=== PATIENT | female | born 1940 | race Caucasian/White ===

== ENCOUNTER → 2019-04-18 14:20 | Outpatient (BNVA) | payer OTHER, SELFPAY | PROVIDERS: Family Provider Internal Medicine; PCP Internal Medicine; Visit Provider Podiatrist Foot & Ankle Surgery | DX: M79.672 Pain in left foot (principal) | CPT/HCPCS: 73630 ==

== ENCOUNTER 2019-05-09 08:01 | Outpatient (CLI) | payer OTHER, SELFPAY ==
--- NOTE | 2019-05-09 08:00 | MR_ITS ---
WS: [id number] MRI LEFT KNEE HISTORY: mechanical symptoms, crush injury. Knee gives out. COMPARISON: MRI 10/15/2013 and prior knee radiograph 11/15/2018. Anterior cruciate ligament: Mild increased signal in the ACL but it is intact. Posterior cruciate ligament: Intact. Medial collateral ligament: Intact. Posterior lateral corner structures: Intact. Medial menisci: Increased signal within the posterior horn does not extend to an articular surface. M ost consistent with moderate intrasubstance degeneration. Anterior horn is negative. Lateral meniscus: Both the anterior and posterior horns are abnormal shape. Diffuse abnormal signal t hroughout the anterior horn consistent with a complex tear. Suspect a radial component of the tear as it extends superior to inferior through the meniscus. There is blunting and fraying of the posterior horn. Extensor mechanism: Distal quadriceps tendon and patellar tendons are intact. Fluid and soft tissue: Small amount of fluid posterior to the medial femoral condyle. Within the flui d is a loose body measuring 10.8 mm. There is a small joint effusion. No [place]'s cyst. There is edema within the infrapatellar fat pad posteriorly towards the joint surface which may be related to impin gement. Osseous and articular structures: Patellofemoral compartment: Severe degenerative changes at the patellofemoral articulation. Significa nt progression of arthritic changes. Complete loss of cartilage with subchondral cystic changes on anai th sides of the joint space, especially laterally. There is very slight lateral subluxation of patell a. Medial compartment: Mild narrowing of the medial compartment with the cartilage relatively well-prese rved. No marrow edema. Lateral compartment: Mild narrowing of the lateral compartment. Thinning and fissuring of the cartila ge. There are focal defects in the cartilage. Defects involve both the femoral condyle and the tibial plateau. Mild progression since the prior study. Large area of subchondral edema and irregularity at the base of the tibial spines. MR/MR knee LT wo con* [id number] IMPRESSION: 1. Severe patellofemoral compartment osteoarthritis with loss of cartilage and osteophytes, greatest involving the lateral joint space. 2. Infrapatellar fat pad edema. Probably due to an impingement syndrome. 3. Abnormal appearance of the anterior and posterior horns of the lateral meni scus. Complex tear and possible radial tear in the anterior horn. Progressed si nce the prior study from 2013. 4. Intrasubstance degeneration posterior horn medial meniscus. 5. Loose body surrounded by a small amount of fluid posterior to the medial fe moral condyle. 6. Mild medial and lateral compartment osteoarthritis, greatest involving the lateral compartment with more cartilage loss then medially.
== END 2019-05-09 08:02 | disposition home or self-care (01) ==
LOC: RADSHAW 08:04
PROVIDERS: Family Provider Internal Medicine; PCP Internal Medicine; Visit Provider Orthopaedic Surgery
DX: M17.0 Bilateral primary osteoarthritis of knee (principal); M24.08 Loose body, other site
CPT/HCPCS: 73721

== ENCOUNTER 2019-06-12 09:21 | Day surgery (SDC) | payer OTHER, SELFPAY ==
[2019-06-11 09:06] VITALS: BMI 20.5
[2019-06-12] VITALS (7 sets, daily range): BP systolic 115–137; BP diastolic 62–73; PULSE 72–89; RESP 16–19; TEMP 36.3–36.7; O2SAT 93–100
--- NOTE | 2019-06-12 09:43 | ECG_ITS ---
Measurements Intervals [place] Rate: 58 P: 82 GA: 182 QRS: 59 QRSD: 84 T: 62 QT: 419 QTc: 414 SINUS BRADYCARDIA Compared to ECG 12/17/2018 06:30:41 Sinus rhythm no longer present Electronically Signed On 06-12-2019 13:07:26 CDT by Estefania Owens M.D. [id number]
[2019-06-12] MEDS: acetaminophen 500 mg Tablet 1000 MG PO (10:20)
[2019-06-12] MEDS: sodium chloride 0.9% 1,000 ML 30 ML IV (10:20)
[2019-06-12] MEDS: gabapentin 300 mg Capsule PO (10:21)
[2019-06-12] MEDS: CELEcoxib 200 mg Capsule 400 MG PO (10:21)
[2019-06-12 10:35] LABS: Basophils # 0.1 10^3/uL (0.0-0.1); Eosinophils # 0.3 10^3/uL (0.0-0.8); Eosinophils % 3.6 %; Hematocrit 38.2 % (37.0-47.0); Hemoglobin 12.8 g/dL (11.5-15.3); Lymphocytes # 2.6 10^3/uL (0.8-4.8); Lymphocytes % 35.8 %; Mean Corpuscular HGB Conc 33.5 g/dL (30.0-36.0); Mean Corpuscular Hemoglobin 32.9 pg (28.0-34.0); Mean Corpuscular Volume 98.2 fL (81-99); Mean Platelet Volume 9.5 fL (7.4-10.4); Monocytes # 0.7 10^3/uL (0.2-0.9); Monocytes % 9.7 %; Neutrophils # 3.6 10^3/uL (1.8-7.7); Neutrophils % 49.6 %; Nucleated Red Blood Cells % 0 %; Platelet Count 338 10^3/cmm (130-400); Red Blood Count 3.89 10^6/uL (4.1-5.3); Red Cell Distribution Width 12.4 % (12.1-15.1); White Blood Count 7.3 10^3/uL (4.0-10.0)
--- NOTE | 2019-06-12 10:37 | ANES.PREANE2 ---
Pre-Anesthetic Assessment Pre-Anesthetic Assessment: Height/Weight: Height 1.57 m Weight 50.802 kg Temp Pulse Resp BP Pulse Ox 98.0 F 72 18 137/73 99 06/12/19 10:05 06/12/19 10:05 06/12/19 10:05 06/12/19 10:05 06/12/19 10:05 Preop Diagnosis: Left knee lateral meniscal tear Proposed Procedure: Operation Date: 06/12/19 11:35 Proposed Procedures p Left knee arthroscopy with lateral meniscectomy 50896/S83.282A(Left) - Jim Braden DO Last intake: Intake Last Liquid Date 06/11/19 Last Liquid Time 18:00 Last Solid Date 06/11/19 Last Solid Time 18:00 Social: Social History: No alcohol and No tobacco Exam: Pre-Anes Outpt Exam: alert, oriented x 3, clear to auscultation bilaterally and regular rate & rhythm Airway: Submandibular: WNL Cervical ROM: WNL MP: 1 Dentition: Other (ok) History/ROS: No significant history except as noted Pulmonary: Pulmonary: None reported CV/HEM: CV/HEM: None reported : : None reported Hepatic: Hepatic: None reported GI: GI: GERD (controlled) Metabolic: Metabolic: None reported Musc/skel: Musc/skel: Fibromyalgia and OA/DJD Neuropsych: Neuropsych: WALTON (occ migranes ) and None reported Anesthetic Plan: ASA status: 2 Anesthesia: Anesthesia Evaluation, Eval. for regional block (left Adductor canal) and General Risk of > 500 ml blood loss (7ml/kg in children): No Meds/Allergies Current Medications: Current Medications Generic Name Dose Route Start Last Admin Trade Name Freq PRN Reason Stop Dose Admin Sodium Chloride 1,000 mls @ 30 ml s/hr 06/12/19 09:15 06/12/19 10:20 Sodium Chloride 0.9% IV 06/13/19 09:14 30 mls/hr .Q24H ARMEN Administration PFSH Anesthesia PFSH: Medical History (Updated 06/12/19 @ 10:39 by Chava Shrestha MD) Anemia Diabetes insipidus Migraine Onychocryptosis Osteoarthritis of knees, bilateral Family History Other CAD (coronary artery disease) Cancer Denies family history of Diabetes Clotting disorder Dementia Hyperlipidemia Psychiatric illness Chronic kidney disease (CKD) Suicide Anesthesia complication Bleeding disorder Family history of premature coronary artery disease Lung disease Hypertension Stroke Data Anesthesia CBC & Chem 7: 06/12/19 10:15 Other Labs: Laboratory Results - last 48 hr 06/12/19 10:15 WBC 7.3 RBC 3.89 L Hgb 12.8 Hct 38.2 MCV 98.2 MCH 32.9 MCHC 33.5 RDW 12.4 Plt Count 338 MPV 9.5 Neut % (Auto) 49.6 Lymph % (Auto) 35.8 [place] % (Auto) 9.7 Eos % (Auto) 3.6 Baso % (Auto) 1.0 Neut # (Auto) 3.6 Lymph # (Auto) 2.6 [place] # (Auto) 0.7 Eos # (Auto) 0.3 Baso # (Auto) 0.1 Nucleated RBC % (auto) 0 Nucleated RBCs # 0.0 Cardiac Studies: No Data to Display
[2019-06-12] MEDS: scopolamine 1.5 Patch 1 PATCH TRANSDERMA (10:44)
[2019-06-12 10:57] LABS: Blood Urea Nitrogen 18 mg/dL (8-23); Carbon Dioxide 27 mmol/L (22-29); Chloride 102 mmol/L (98-107); Glucose 106 mg/dL (65-115); Osmolality Calculated 279 mOsm/kg (285-295); Sodium 136 mmol/L (136-145)
[2019-06-12] MEDS: fentaNYL 50 mcg/mL INJ 2mL IVP (11:05)
[2019-06-12] MEDS: midazolam 1 mg/mL INJ 2 mL 2 MG IVP (11:06)
--- NOTE | 2019-06-12 11:26 | W.PM.OPSUD ---
Surgery/Procedure H&P Update DATE OF PROCEDURE: June 12, 2019 DATE H&P PERFORMED: 05/16/19 H&P UPDATE INFORMATION: I have reviewed H&P completed within last 30 days PREOP DIAGNOSIS: Left knee lateral meniscal tear PRIMARY INDICATION FOR PROCEDURE: as above PLANNED PROCEDURE: Operation Date: 06/12/19 11:35 Proposed Procedures p Left knee arthroscopy with lateral meniscectomy 27221/S83.282A(Left) - Jim Braden DO
--- NOTE | 2019-06-12 11:28 | PM.OP ---
Operative Report Date of procedure: June 12, 2019 Pre-op Diagnosis: Left knee lateral meniscal tear Post-op diagnosis: other Post-op Findings: Left knee with medial and lateral meniscal tears Procedure Done: Diagnostic arthroscopy left knee with resection of medial and lateral meniscal tears Implants: N/A Specimens removed/disposition: Portions of synovium and removed portions of meniscal tissue disposed of in OR Pathology: none sent Surgeon: Jim Braden Anesthesia: General Estimated blood loss (mL): 10 Tourniquet time (min): 32 Tourniquet time: At 300 mmHg pressure Complications: No apparent complications Findings: Tricompartmental DJD Evidence of previous steroid injections. No pathology in medial lateral gutters Posterior horn fraying of the medial meniscus Posterior horn and displaced tear of the mid to anterior horn of the lateral meniscus Anterior and posterior cruciate ligaments intact Condition: stable Disposition: same day Brief History: 78-year-old white female with persistent disabling left knee pain. Examination excessive of the lateral compartment pathology. X-rays show tricompartmental osteoarthritis with narrowing of the valgus compartment more than the medial compartment but not [id number]. MRI shows tricompartmental osteoarthritis particular the patellofemoral joint and increased signal in the lateral meniscus suggestive of tear of the lateral meniscus. Patient is failed conservative treatment. Risk, benefits and potential complications of diagnostic arthroscopy of the left knee were discussed with the patient. Risks include are not limited to failure to leave all pain poss need for further surgery later date such as a total knee arthroplasty. Can be risk of infection, blood clots, heart attack, stroke risk up to including . All questions were answered patient agreeable to proceed with surgery. Procedure: 1.5 g Zinacef Patient identified. Surgical site is signed. OR permit is signed. Patient received 1.5 g of Zinacef intravenously for surgical prophylaxis. Patient is taken to Operating Room. The patient is placed on the Operating Room table. Patient was placed under general anesthesia without difficulty. Tourniquet placed at the upper aspect of the left thigh. Patient then sterilely prepped and draped in usual fashion. Operative limb is exsanguinated using Esmarch bandage. Tourniquet inflated to 300 mm mercury of pressure. Standard anteromedial and anterolateral portals are made. The portal sites were anesthetized with 10 mL total of a 1-1 mixture of 1% lidocaine with epinephrine and half percent ropivacaine into the soft tissues only. Arthroscope inserted into the anterolateral portal. The knee was distended using arthroscopic pump containing sterile saline and dilute epinephrine solution. Patient had a posterior horn of the medial meniscus and and anterior horn to mid body tear of the lateral meniscus. The tears were resected back to a stable rim using meniscal biters and a motorized shaver.. The knee was irrigated with sterile saline. The portal sites, two in number, were closed with interrupted 4-0 nylon sutures. The knee was injected with 10 cc of 0.5% ropivicaine and 40 mg of Kenalog for postoperative analgesia. Antibiotic ointment was applied followed by sterile dressings. The tourniquet was deflated during application of dressings. Patient was awakened from anesthesia. Patient was taken to the Recovery Room. Patient tolerated procedure well. All counts were correct.
[2019-06-12] MEDS: cefUROXime 1,500 MG in sodium chloride 0.9% (plus) 50 ML 100 MG IV (12:25)
[2019-06-12] MEDS: EPINEPHrine 1 mg/mL INJ 2 MG XX (13:14)
[2019-06-12] MEDS: neomycin-poly-bacitracin oint 28 gm 1 APPLIC TOPICAL (13:15)
[2019-06-12] MEDS: triamcinolone 40 mg/mL SDV IM (13:17)
[2019-06-12] MEDS: EPINEPHrine 1 mg/mL INJ XX (13:27)
--- NOTE | 2019-06-12 14:08 | ANES.PROC ---
Anesthesia Procedures Procedure/Date: 06/12/19 Nerve Block ^: Nerve Block 1: Main Anesthesia: general anesthesia Time Out Performed: Yes Consent: requested by attending/covering physician, risks and benefits reviewed and patient agrees to proceed Nerve block location: adductor canal (left) Anesthesia monitors applied: pulse oximetry, EKG, BP cuff and oxygen Nerve block position: supine Anesthetic Used: ropivicaine 0.5% and with decadron (4 mg) Amount of anesthesia used (mL): 20 Ultrasound used to: recognize landmarks Nerve Stimulator Used?: No Interscalene/Femoral BLK: 4 stimuplex 21 g needle used for position and inplane approach, visualize local anesthetic spread and no vascular puncture identified Injection: neg aspiration of heme Patient Tolerated Procedure: well and no complications Complications: none
== END 2019-06-12 15:20 | disposition home or self-care (01) ==
PROVIDERS: Family Provider Internal Medicine; PCP Internal Medicine; Visit Provider Orthopaedic Surgery
PROC: (CPT 29870; principal; 2019-06-12 11:35)
DX: S83.282A Other tear of lateral meniscus, current injury, left knee, initial encounter (principal); S83.242A Other tear of medial meniscus, current injury, left knee, initial encounter; X58.XXXA Exposure to other specified factors, initial encounter; Z82.49 Family history of ischemic heart disease and other diseases of the circulatory system; M19.90 Unspecified osteoarthritis, unspecified site; Z79.891 Long term (current) use of opiate analgesic
CPT/HCPCS: 29880; 12345; 36415; 80048; 85025; 93005; 96374; 96375; J0171; J0697; J1100; J2001; J2250; J2405; J2704; J2710; J2795; J3010; J3301; J3490; J7030

== ENCOUNTER 2019-09-04 11:22 | Inpatient (IN) | payer OTHER, SELFPAY ==
--- NOTE | 2019-08-27 11:11 | ANES.PREANE2 ---
Pre-Anesthetic Assessment Pre-Anesthetic Assessment: Height/Weight: Height 1.57 m Weight 48.534 kg Preop Diagnosis: Left knee lateral meniscal tear Proposed Procedure: Operation Date: 09/04/19 12:45 Proposed Procedures p Total Knee Arthroplasty w imageless computer navigation [id number] M17.12(Left) - Jim Braden DO Familial anesthetic complications: PONV - will apply scopolamine patch Social: Social History: No alcohol and No tobacco Exam: Pre-Anes Outpt Exam: alert, oriented x 3, clear to auscultation bilaterally and regular rate & rhythm Airway: Cervical ROM: WNL MP: 1 Additional comments: bridge Pulmonary: Pulmonary: None reported CV/HEM: CV/HEM: None reported : : None reported Hepatic: Hepatic: None reported GI: GI: GERD Metabolic: Metabolic: None reported Musc/skel: Musc/skel: None reported Neuropsych: Neuropsych: None reported Anesthetic Plan: ASA status: 2 Anesthesia: General and Regional (specify below) Risk of > 500 ml blood loss (7ml/kg in children): No PFSH Anesthesia PFSH: Medical History Anemia Diabetes insipidus Migraine Onychocryptosis Osteoarthritis of knees, bilateral Family History Other CAD (coronary artery disease) Cancer Denies family history of Diabetes Clotting disorder Dementia Hyperlipidemia Psychiatric illness Chronic kidney disease (CKD) Suicide Anesthesia complication Bleeding disorder Family history of premature coronary artery disease Lung disease Hypertension Stroke Data Anesthesia Cardiac Studies: No Data to Display
[2019-09-04] VITALS (16 sets, daily range): BP systolic 103–144; BP diastolic 61–100; PULSE 64–85; RESP 16–20; TEMP 35.7–36.8; O2SAT 92–100
--- NOTE | 2019-09-04 06:07 | ECG_ITS ---
Measurements Intervals [place] Rate: 68 P: 89 SC: 164 QRS: 72 QRSD: 80 T: 74 QT: 382 QTc: 409 SINUS RHYTHM Compared to ECG 06/12/2019 11:47:42 Sinus bradycardia no longer present Electronically Signed On 09-04-2019 19:36:16 CDT by Dennis Peralta M.D. [id number]
[2019-09-04] MEDS: sodium chloride 0.9% 1,000 ML 999 ML IV (06:35)
--- NOTE | 2019-09-04 06:50 | P.OP_ITS ---
Operative Report Date of procedure: September 04, 2019 Pre-op Diagnosis: DJD left knee Post-op diagnosis: same Procedure Done: Left total knee arthroplasty Imageless computer-assisted navigation to perform left total knee arthroplasty Implants: Akash triathlon components Specimens removed/disposition: Left knee bone and cartilage Anesthesia: Nerve Block (Single shot adductor canal block) and Other (spinal) Estimated blood loss (mL): 25 Tourniquet time (min): 110 (At 300 mmHg pressure) Condition: stable Disposition: PACU Brief History: 79-year-old white female with persistent complaints of left knee pain. She is received both conservative treatment with oral analgesics intra- articular injection followed by diagnostic arthroscopy of the left knee with resection of meniscal pathology. He had persistent complaints of pain largely in the medial aspect of her knee. Risk, benefits and potential complications of surgery been discussed with the patient. Risks include are not limited to failure to leave all pain, infection, nerve/blood vessel/injury, blood clots, heart attack, stroke and risk up to including . She may require perioperative blood transfusions. Risk of transfusions include transfusion reaction transmission of infectious diseases as hepatitis of AIDS all of which can be fatal. All questions answered patient agreeable to proceed with surgery. Patient was watched the [facility] joint class video. Procedure: 2 g cefazolin IV 1 g vancomycin IV 2 g Ancef 1 g Vancomycin Akash Triathlon Knee System 4 Cemented posterior stabilized femoral component 3 [place] Tibial Baseplate 3x9 mm posterior stabilized tibial insert 1 packages of Simplex cement with Tobramycin Patient identified. Surgical site signed. Surgical permit signed. Patient received 1.0 g of Vancomycin and 2 g of Ancef for antimicrobial prophylaxis. Anesthesia team performed a adductor canal block in the preoperative holding are a. She was taken to the operating room. She received a spinal anesthetic. She was placed supine on the OR table. A gel bump was placed under the ipsilateral buttock. A reed catheter was placed for urinary drainage. A tourniquet was placed about the upper aspect of the operative left limb. The operative limb was then sterilely prepped and draped usual fashion. The patient received 1 g of TXA prior to inflation of the tourniquet and during wound closure intravenously for additional hemostasis. The operative limb was exsanguinated using an Esmarch bandage and the tourniquet inflated to 300 mm Hg pressure. A 20 cm midline incision was made with a skin knife. Full-thickness skin flaps were made. Skin edge bleeders were coagulated with electrocautery. Using a second knife we perform a medial parapatellar arthrotomy. Soft tissues were released off the anteromedial aspect of the tibia to the posterior medial corner of the tibia with second knife and Garza elevator. The anterior horns of the medial and lateral menisci were released and resected. Partial fat pad resection was performed with sharp dissection. The anterior posterior cruciate ligaments were divided sharply. Using electrocautery the lateral patellofemoral ligament was divided. The knee was placed in full extension. The patella was everted. Marginal osteophytes were removed. Electrocautery was taken around the periphery of the patella. The patella measured 16 to 20 mm in thickness. Due to the thiness of the patella I elected not to resurface. A partial lateral facetectomy was performed with an oscillating saw. The knee was then flexed to 60?. A guidepin for the GROU.PS navigation device was inserted on the distal femur on Swain?s line. We measured for the anterior posterior offset and input the number. We attached the anterior reference unit. We entered the offset. We maneuvered the leg to register the femur. We then set the resection plane at 0? of varus from the mechanical axis and flexion at 4? for the femoral component. We set the distal femoral resection guide for 11mm. Using an oscillating saw we performed the distal femoral cut. We then secured the tibial cutting jig on the tibia and held in place with a rubberized strap. The guide was put in place and the medial one third of the tibial tubercle and was secured with 3 pins. Tibial registration was performed by first reading and then adjust the distal offset to match 3 to the midline probe offset. The side levers were unlocked and we extended the distal probe to match offsets. We then registered the lateral followed by the medial malleolus. We set the varus/valgus angle to 0? and set the posterior slope to 0 degrees. We used the 2 mm stylus set our depth for tibial resection. We then used the oscillating saw to perform our proximal tibial cut. We now at checked our extension space and we were able to put a size 11 spacer and with good stability and to near full extension. We sized the femur for a size 4 using the anterior referencing guide. Rotation was set at 3? of external rotation. The 4-in-1 cutting guide was put into place and an zenaida wing was placed through the anterior cutting guide to assess for the potential of anterior notching. The zenaida wing passed anterior to the femoral cortex. The 4-in-1 cutting block was pinned into place and the anterior and posterior as well as the chamfer cuts were then performed. The PS cutting block was pinned into place and the box cut was made with an oscillating saw. Lug holes were drilled. A size 4 femoral box cut component was then put on the distal femur. Box cut was then made with reciprocating saw. The knee was flexed to 110? and a PCL retractor was used to subluxate the tibia anteriorly with respect to the femur.The tibia was sized for a size 3. The placement of the tibial trial was adjusted for maximal coverage and appropriate rotation. The size 5 tibial plate was held in place using headed pins.We then drilled for the stem and punch for the keel. A trial reduction was performed with an 9 mm followed by an 11 mm trial articular surface. The 11 mm thickness trial was too tight.With the 9 mm thicnkess trial in place the knee was able to come to near full extension with flexion of 110?. The unresurfaced patella tracked nicely with a no touch technique. All trial components were removed from the knee. The knee was irrigated with pulsatile lavage containing antibiotic solution and the joint was dried. we injected 120 mL of a one to one to one mixture of liposomal bupivacaine, half percent bupivacaine and sterile saline into the areas of resected meniscal tissue, joint capsule, patellar tendon, quadriceps tendon and the collateral ligaments. We then mixed 2 bag of low viscosity cement with Tobramycin. Tobramy fela for additional antimicrobial prophylaxis. We cemented the size 4 posterior stabilized femoral component and removed excess cement. We then cemented the size 3 tibial component and removed excess cement. The cement was allowed to cure fully. We inserted the 9 mm thickness size 3 posterior stabilized tibial articular insert. The knee came to near full extension flexion easily to 110?. The knee was stable to varus valgus stress at extension and flexion. The unresurfaced patella tracked nicely with a no touch technique. . The knee was then irrigated with Betadine-containing saline solution and antibiotic containing saline solution. FloSeal was then placed in the wound for additional hemostasis within the joint was dried. Vancomycin powder was placed and capsular closure was performed with permanent as well as absorbable barbed suture. The subcutaneous layer was irrigated with Betadine-containing saline solution and antibiotic containing saline solution. Vancomycin powder was also placed in this layer. The wound was then closed in layers with rafal and skin glue on skin. The tourniquet was deflated during skin closure. Sterile dressings were then applied. A compressive Ronald wrap was applied from ankle to groin. The patient was aroused from sedation. Patient was taken to the recovery room. Patient tolerated the procedure well. All counts were correct.
--- NOTE | 2019-09-04 06:50 | W.PM.OPSUD ---
Surgery/Procedure H&P Update DATE OF PROCEDURE: September 04, 2019 DATE H&P PERFORMED: 08/09/19 H&P UPDATE INFORMATION: I have reviewed H&P completed within last 30 days, I have examined patient prior to procedure and No changes to prior documentation PREOP DIAGNOSIS: DJD left knee PRIMARY INDICATION FOR PROCEDURE: Painful DJD left knee PLANNED PROCEDURE: Operation Date: 09/04/19 08:05 Proposed Procedures p Total Knee Arthroplasty w imageless computer navigation [id number] M17.12(Left) - Jim Braden DO
[2019-09-04] MEDS: scopolamine 1.5 Patch 1 PATCH TRANSDERMA (07:06)
[2019-09-04 07:09] LABS: Add Urine Microscopic? YES; Bilirubin Urine Neg (NEGATIVE); Blood Urine 2+ (Negative); Glucose Urine UA Norm (Normal); Ketones Urine Negative (Negative); Leukocyte Esterase Urine Trace (Negative); Nitrate Urine Negative (Negative); Protein Urine Neg (Negative); Specific Gravity, Urine 1.015 (1.005-1.030); Urine Appearance Cloudy (CLEAR); Urine Color Yellow (Yellow); Urobilinogen Urine Norm (Negative); pH Urine 6 (5-7)
[2019-09-04 07:09] LABS: Basophils # 0.1 10^3/uL (0.0-0.1); Basophils % 1.5 %; Eosinophils # 0.4 10^3/uL (0.0-0.8); Hematocrit 41.1 % (37.0-47.0); Hemoglobin 13.7 g/dL (11.5-15.3); Lymphocytes % 41.6 %; Mean Corpuscular HGB Conc 33.3 g/dL (30.0-36.0); Mean Corpuscular Hemoglobin 31.9 pg (28.0-34.0); Mean Corpuscular Volume 95.8 fL (81-99); Mean Platelet Volume 9.8 fL (7.4-10.4); Monocytes # 0.7 10^3/uL (0.2-0.9); Monocytes % 10.3 %; Neutrophils # 2.9 10^3/uL (1.8-7.7); Neutrophils % 40.5 %; Nucleated Red Blood Cells % 0 %; Platelet Count 353 10^3/cmm (130-400); Red Blood Count 4.29 10^6/uL (4.1-5.3); Red Cell Distribution Width 12.2 % (12.1-15.1); White Blood Count 7.2 10^3/uL (4.0-10.0)
[2019-09-04 07:16] LABS: WBC Urine RARE /hpf (0-5)
[2019-09-04 07:17] LABS: Add Urine Culture? Yes; Bacteria Urine 4+; Squamous Epithelial Cell Urine RARE (0-5)
--- NOTE | 2019-09-04 07:37 | SUR.OPER ---
1 ml Versed and 1 ml Fentanyl given during block per Dr. Shrestha.
--- NOTE | 2019-09-04 07:42 | ANES.PROC ---
Anesthesia Procedures Procedure/Date: 09/04/19 Nerve Block ^: Nerve Block 1: Main Anesthesia: spinal anesthesia block Time Out Performed: Yes Consent: requested by attending/covering physician, risks and benefits reviewed and patient agrees to proceed Nerve block location: adductor canal (left) and popliteal (left) Anesthesia monitors applied: pulse oximetry, EKG, BP cuff and oxygen Nerve block position: lateral (RLD for the poptiteal and supine for the AC) Anesthetic Used: ropivicaine 0.5% (20ml in the AC and 20ml in the pop) and with decadron (8mg) Amount of anesthesia used (mL): 40 Ultrasound used to: recognize landmarks Nerve Stimulator Used?: Yes Interscalene/Femoral BLK: 4 stimuplex 21 g needle used for position and inplane approach, visualize local anesthetic spread and no vascular puncture identified Injection: neg aspiration of heme Patient Tolerated Procedure: well and no complications Complications: none
[2019-09-04 07:55] LABS: Anion Gap 14.1 (5-19); Blood Urea Nitrogen 12 mg/dL (8-23); Carbon Dioxide 26 mmol/L (22-29); Chloride 99 mmol/L (98-107); Glucose 104 mg/dL (65-115); Osmolality Calculated 276 mOsm/kg (285-295); Potassium 4.1 mmol/L (3.5-5.1); Sodium 135 mmol/L (136-145)
[2019-09-04] MEDS: vancomycin 1,000 MG in sodium chloride 0.9% 250 ML 250 MG IV (08:44)
[2019-09-04] MEDS: vancomycin 1,000 MG SDV 1000 MG XX (10:01)
--- NOTE | 2019-09-04 11:35 | XR_ITS ---
NOTE: Report was unsigned for reason: Order was edited. Original Signature date and time was: 09/04/19 @1154 WS: [id number] LEFT KNEE 2 VIEWS AP and cross table lateral imaging is submitted. HISTORY: post op left tkr. COMPARISON: 11/15/2018 Total knee replacement prosthetic devices are in good position and alignment. Normal position of the patella. Posterior patella resurfacing changes. Numerous postsurgical sutures are noted over the anterior knee and there are normal postoperative changes in the soft tissues consistent with air, blood and edema. No complications are evident. MTDD XR/XR knee LT 1-2V [id number] IMPRESSION: Satisfactory appearance of the recent LEFT knee arthroplasty.
[2019-09-04] MEDS: sodium chloride 0.9% 1,000 ML 100 ML IV ×2 (11:48→20:44)
--- NOTE | 2019-09-04 12:02 | SUR.PHASEI ---
1202 PT AWAKE ALERT , VERBALIZED NO PAIN LT KNEE DRESSING D/I WITH FIRST ICE TO KNEE DISTAL PULSE STRONG REGULAR MARKED WARM BLANKETS X 6 TO PATIENT FOR COMFORT, SATS 97-98% WHEN PROBE CAN READ DUE TO PT RESTLESS PULLING COVERS UP , MORE WARM BLANKETS TO PT. ROOT TO DD WITH CLEAR URINE NOTED TO BAG AND TUBING, IV PATENT 1215 NS INFUSED SEE NEW BAG UP, PT SPINAL ANESTHESIA AT T11 AREA PT UNABLE TO MOVE LOWER LEGS, PT ALSO HAD A BLOCK TO LT LEG.
--- NOTE | 2019-09-04 12:55 | SUR.PHASEI ---
1220 PT AWAKE ALERT TO FLOOR PER BED NURSE IN ROOM HANDOFF AT BEDSIDE DRESSING D/I FIRST ICE IN PLACE BP 144/81, HR 68, RESP 16 SATS ON RA 100% PT TYE TO MOVE TOES ON RT FOOT NOW, STATES NORMAL SENSATION TO BELOW UMBILICUS LEVEL MORE AT HIP LEVEL NOW.
[2019-09-04] MEDS: chlorhexidine gluconate 0.12% Btl 473 mL 30 ML MUCOUS MEM ×2 (17:19→20:45)
[2019-09-04] MEDS: calcium carbonate 500 mg Chew Tablet 1000 MG PO (17:19)
[2019-09-04] MEDS: sennosides-docusate Tablet 2 TAB PO (17:20)
[2019-09-04] MEDS: valACYclovir 1,000 mg Tablet 500 MG PO (17:20)
[2019-09-04] MEDS: ceFAZolin 1,000 MG in sodium chloride 0.9% (plus) 50 ML 100 MG IV (17:20)
[2019-09-04] MEDS: pantoprazole DR 40 mg Tablet PO (17:20)
[2019-09-04] MEDS: iron polysaccharide complex 150 mg Capsule PO (17:20)
--- NOTE | 2019-09-04 18:03 | NUR.SHIFT ---
SHIFT SUMMARY PATIENT HAS DONE WELL SINCE ARRIVING FROM THE OR. PATIENT HAS ZERO PAIN. BLOCK IS BEGINNING TO WEAR OFF SLOWLY. PATIENT HAS FEELING RIGHT ABOVE THE KNEE AT THIS TIME, BUT IS STILL UNABLE TO MOVE LEFT FOOT. VITALS HAVE BEEN GOOD. PATIENT TOLERATING REGULAR DIET. 800ML OF URINE OUTPUT. NO COMPLAINTS AT THIS TIME.
[2019-09-04] MEDS: acetaminophen 500 mg Tablet 1000 MG PO (20:45)
[2019-09-05] VITALS (8 sets, daily range): BP systolic 91–176; BP diastolic 39–79; PULSE 65–80; RESP 17–20; TEMP 36.3–36.8; O2SAT 93–98
[2019-09-05] MEDS: apixaban 5 mg Tablet 2.5 MG PO ×3 (00:14→17:49)
[2019-09-05] MEDS: ceFAZolin 1,000 MG in sodium chloride 0.9% (plus) 50 ML 100 MG IV ×3 (00:16→17:50)
[2019-09-05] MEDS: acetaminophen 500 mg Tablet 1000 MG PO ×3 (04:06→20:05)
[2019-09-05 05:56] LABS: Basophils % 0.1 %; Eosinophils % 0.1 %; Hematocrit 28.3 % (37.0-47.0); Hemoglobin 9.3 g/dL (11.5-15.3); Lymphocytes # 2.4 10^3/uL (0.8-4.8); Lymphocytes % 14.9 %; Mean Corpuscular HGB Conc 32.9 g/dL (30.0-36.0); Mean Corpuscular Hemoglobin 31.7 pg (28.0-34.0); Mean Corpuscular Volume 96.6 fL (81-99); Mean Platelet Volume 9.6 fL (7.4-10.4); Monocytes # 1.3 10^3/uL (0.2-0.9); Monocytes % 8.3 %; Neutrophils % 76.2 %; Nucleated Red Blood Cells % 0 %; Platelet Count 240 10^3/cmm (130-400); Red Blood Count 2.93 10^6/uL (4.1-5.3); Red Cell Distribution Width 12.3 % (12.1-15.1); White Blood Count 15.8 10^3/uL (4.0-10.0)
[2019-09-05 06:10] LABS: Anion Gap 13.1 (5-19); Blood Urea Nitrogen 14 mg/dL (8-23); Calcium 8.9 mg/dL (8.5-10.5); Carbon Dioxide 21 mmol/L (22-29); Chloride 105 mmol/L (98-107); Glucose 116 mg/dL (65-115); Osmolality Calculated 277 mOsm/kg (285-295); Potassium 4.1 mmol/L (3.5-5.1); Sodium 135 mmol/L (136-145)
[2019-09-05] MEDS: sodium chloride 0.9% 1,000 ML 100 ML IV (06:39)
--- NOTE | 2019-09-05 07:46 | PC.NURSE ---
Addendum entered by Alanis Muniz RN 09/05/19 12:01: brianna left in place at this time. Original Note: pt not able to get up at this time d/t not being able to feel her L leg.
[2019-09-05] MEDS: vancomycin 1,000 MG in sodium chloride 0.9% 250 ML 250 MG IV (08:13)
[2019-09-05] MEDS: cholecalciferol (vitamin D3) 1,000 unit Tablet 1000 UNIT PO (08:13)
[2019-09-05] MEDS: calcium carbonate 500 mg Chew Tablet 1000 MG PO ×2 (08:14→17:48)
[2019-09-05] MEDS: multivitamin therapeutic Tablet 1 TAB PO (08:14)
[2019-09-05] MEDS: pantoprazole DR 40 mg Tablet PO (08:14)
[2019-09-05] MEDS: sennosides-docusate Tablet 2 TAB PO ×2 (08:14→17:48)
[2019-09-05] MEDS: iron polysaccharide complex 150 mg Capsule PO ×2 (08:14→17:48)
[2019-09-05] MEDS: chlorhexidine gluconate 0.12% Btl 473 mL 30 ML MUCOUS MEM ×3 (08:16→17:49)
[2019-09-05] MEDS: valACYclovir 1,000 mg Tablet 500 MG PO ×2 (08:17→17:49)
--- NOTE | 2019-09-05 08:53 | P.PN_ITS ---
Subjective Subjective: Interval history: 79-year-old white female postoperative day 1 status post left total knee arthroplasty with imageless computer-assisted navigation for degenerative arthritis of the left knee. no complaints of chest pain, shortness of breath or dizziness. No complaints of nausea Vitals/I&O/Wt Last Vital Signs Temp 98.1 F 09/05/19 07:29 Pulse 65 09/05/19 07:29 Resp 20 H 09/05/19 07:29 BP 91/51 09/05/19 07:29 Pulse Ox 96 09/05/19 07:29 09/04/19 09/05/19 09/05/19 22:59 06:59 14:59 Intake Total 410 / 1870 991.667 / 2861.667 420 / 420 Output Total 800 / 1325 400 / 1725 Balance -390 / 545 591.667 / 1136.667 420 / 420 Physical Exam Narrative: EXAM NARRATIVE: 79-year-old white female in no acute distress. She is alert and cooperative. Neck/C-Spine: COMMON NORMALS: no JVD Resp: COMMON NORMALS: normal respiratory effort and clear to auscultation bilaterally AUSCULTATION: clear to auscultation bilaterally, crackles, rales, rhonchi and wheezes Cardio: COMMON NORMALS: no JVD, regular rate, regular rhythm, S1 normal heart sound present and S2 normal heart sound present RATE: regular rate RHYTHM: regular rhythm HEART SOUNDS: S1 normal heart sound present and S2 normal heart sound present Extremity: LEFT LOWER EXTREMITY: Yes knee joint (dressing intact with minimal strikethrough, no calf tenderness bilaterally) Urinary Catheter Management^: Davis: Cath Placed During This Visit: yes Reason for Continuing Indwelling Catheter: Perioperative Use in Selected Surg eries Urinary Catheter Date of Insertion: 09/04/19 Urinary Catheter Time of Insertion: : Data : 09/05/19 05:00 09/05/19 05:00 A&P Assessment and plan (1) History of knee replacement procedure of left knee: Finish perioperative antibiotics VTE prophylaxis, pharmacologic, sequential compression devices, mobilization?highest risk Pain control Remove Davis catheter Weight bearing status: Weight bearing as tolerated on operative limb Monitor hemoglobin and hematocrit Discharge planning- home with home health Status: Acute Attestations Medical Necessity Statement*: Patient requires continued inpatient level care for monitoring of vital signs, pain control and physical therapy to ensure that she can return home with home health safely Time Spent in Patient Care: 16 - 35 minutes (>than 50% of time spent in counselling and/or direct pt care on unit) . Coding Level of Care Code Acute Seed Packer for Ubaldo Barron Diagnoses History of knee replacement procedure of left knee Z96.652
--- NOTE | 2019-09-05 09:53 | PC.CHAP ---
Pastoral Care Encounter/Spiritual Assessment Type of Contact [] Declined pulp grinder visit [] Patient/Family/Request visit [] Outpatient visit [] Follow-up visit [] Physician referral [] Code/Alert [x] Routine visit [] Staff referral [] Actively dying [] Patient sleeping [] Family support [] [] Out of room [] Palliative care [] [] Receiving care in room [] Pre-surgical visit [] Trauma [] Long length of stay [] ICU visit [] Other: Relational/Emotional Strength [] Patient feels connected with others/family/visitors/staff [] Distress [] Loneliness/isolation [] Abandonment Spirituality of Patient [] Person of Michaela [] Attends [employer] of their Michaela [] Believes in Prayer [] Reads Bible or Mandaen materials [] There are Spiritual issues to be addressed [facility] Office Supervisor Interventions [x] Prayer [] Active listening [] Non-anxious presence [] Spiritual/emotional support [] Crisis/trauma care [] Spiritual counseling [] Bereavement support [] Provided bereavement packet [] Provided Bible/devotional materials [] Provided toy/stuffed animal, coloring book to patient or family member [] Provided Communion [] Anointing/Healy [] Salvation [x] Completed spiritual assessment [] Other: Impact on Illness or Injury [] Angry [] Fearful [] Anxious [] Often cries [] Exhaustion [] Unable to work [] Unable to attend gnosticism [] Unable to walk/stand [] Unable to read [] Unable to drive [] Unable to eat/drink [] Unable to sleep [] Unable to be with family [] Patient intubated [] Other: Summary Patient so looking forward to long walks. Patient waiting for leg to have feeling. Time spent with patient 10 min
--- NOTE | 2019-09-05 13:02 | ANE.PACU2 ---
Inpatient post-anesthesia follow up: Airway intact: Yes Vital signs: Temperature 98.2 F Pulse Rate 80 Respiratory Rate 20 Blood Pressure 96/50 Pulse Oximetry 97 Oxygen Delivery Me thod Room Air Oxygen Flow Rate 8 Fraction of Inspir ed Oxygen Hydration adequate: Yes Nausea and vomiting: No Pain level: 1 Mental status: Baseline Additional Comments: patient still has nerve block active in popliteal distrubtion
--- NOTE | 2019-09-05 14:08 | PC.NURSE ---
reed discontinued, 9mL saline removed from balloon. pt tolerated well.
--- NOTE | 2019-09-05 17:44 | PC.PT ---
PT note; patient's left femoral nerve block still in effect in a.m.; PT evaluation and out of bed deferred until p.m. hoping for improvements with same
[2019-09-05] MEDS: oxyCODONE 5 mg IR Tab/Cap PO (17:51)
--- NOTE | 2019-09-05 19:03 | PC.NURSE ---
SHIFT SUMMARY pt has done well, the block to her L knee has slowly wore off today requiring use of po pain medications. PT worked with pt, she stayed up in the chair for about 3 hours. reed was discontinued around 1405, iv fluids were discontinued per Dr. Braden. pt urinated approximately 50mL urine at 1840, this information passed along to night guard nurse Christiane GA
[2019-09-05] MEDS: TRAMadol 50 mg Tablet PO (20:05)
[2019-09-05] MEDS: HYDROmorphone 1 mg/mL INJ 1 mL 0.5 MG IVP (21:40)
[2019-09-06] VITALS (9 sets, daily range): BP systolic 147–157; BP diastolic 72–83; PULSE 75–88; RESP 16–18; TEMP 36.6–36.9; O2SAT 95–97
[2019-09-06] MEDS: ceFAZolin 1,000 MG in sodium chloride 0.9% (plus) 50 ML 100 MG IV ×3 (00:24→17:30)
[2019-09-06] MEDS: oxyCODONE 5 mg IR Tab/Cap PO ×4 (01:33→19:48)
[2019-09-06] MEDS: sodium chloride 0.9% 1,000 ML 100 ML IV (01:35)
[2019-09-06] MEDS: HYDROmorphone 1 mg/mL INJ 1 mL 0.5 MG IVP (03:08)
[2019-09-06 03:46] LABS: Basophils # 0.1 10^3/uL (0.0-0.1); Basophils % 0.4 %; Eosinophils # 0.1 10^3/uL (0.0-0.8); Eosinophils % 0.3 %; Hematocrit 32.9 % (37.0-47.0); Hemoglobin 10.9 g/dL (11.5-15.3); Lymphocytes # 2.8 10^3/uL (0.8-4.8); Lymphocytes % 18.2 %; Mean Corpuscular HGB Conc 33.1 g/dL (30.0-36.0); Mean Corpuscular Hemoglobin 31.4 pg (28.0-34.0); Mean Corpuscular Volume 94.8 fL (81-99); Mean Platelet Volume 9.8 fL (7.4-10.4); Monocytes # 1.4 10^3/uL (0.2-0.9); Monocytes % 9.2 %; Neutrophils % 71.6 %; Nucleated Red Blood Cells % 0 %; Platelet Count 282 10^3/cmm (130-400); Red Blood Count 3.47 10^6/uL (4.1-5.3); Red Cell Distribution Width 12.5 % (12.1-15.1); White Blood Count 15.3 10^3/uL (4.0-10.0)
[2019-09-06 04:18] LABS: Anion Gap 12.7 (5-19); Blood Urea Nitrogen 13 mg/dL (8-23); Calcium 9.4 mg/dL (8.5-10.5); Carbon Dioxide 23 mmol/L (22-29); Chloride 102 mmol/L (98-107); Glucose 141 mg/dL (65-115); Osmolality Calculated 277 mOsm/kg (285-295); Potassium 3.7 mmol/L (3.5-5.1); Sodium 134 mmol/L (136-145)
[2019-09-06] MEDS: pantoprazole DR 40 mg Tablet PO (08:13)
[2019-09-06] MEDS: cefUROXime 250 mg Tablet 500 MG PO ×2 (08:13→17:29)
[2019-09-06] MEDS: multivitamin therapeutic Tablet 1 TAB PO (08:13)
[2019-09-06] MEDS: sennosides-docusate Tablet 2 TAB PO ×2 (08:13→17:29)
[2019-09-06] MEDS: calcium carbonate 500 mg Chew Tablet 1000 MG PO ×2 (08:13→17:29)
[2019-09-06] MEDS: iron polysaccharide complex 150 mg Capsule PO ×2 (08:13→17:29)
[2019-09-06] MEDS: apixaban 5 mg Tablet 2.5 MG PO ×2 (08:14→17:29)
[2019-09-06] MEDS: cholecalciferol (vitamin D3) 1,000 unit Tablet 1000 UNIT PO (08:18)
[2019-09-06] MEDS: valACYclovir 1,000 mg Tablet 500 MG PO ×2 (08:18→17:29)
[2019-09-06] MEDS: chlorhexidine gluconate 0.12% Btl 473 mL 30 ML MUCOUS MEM ×4 (08:18→19:52)
--- NOTE | 2019-09-06 09:53 | P.PN_ITS ---
Subjective Subjective: Interval history: 79-year-old white female postoperative day 2 status post left total knee arthroplasty with imageless computer-assisted navigation. Patient states that she is still requiring significant amount of parenteral pain medication and that she cannot tolerate pain only with oral medications as of today's date. Vitals/I&O/Wt Last Vital Signs Temp 98.5 F 09/06/19 08:00 Pulse 85 09/06/19 08:00 Resp 18 09/06/19 08:14 BP 153/72 09/06/19 08:00 Pulse Ox 97 09/06/19 08:00 09/05/19 09/06/19 09/06/19 22:59 06:59 14:59 Intake Total 1650 / 2600 50 / 2650 120 / 120 Output Total 50 / 50 1150 / 1200 Balance 1600 / 2550 -1100 / 1450 120 / 120 Physical Exam Narrative: EXAM NARRATIVE: 79-year-old white female no acute distress. Neck/C-Spine: COMMON NORMALS: no JVD Resp: COMMON NORMALS: normal respiratory effort and clear to auscultation bilaterally AUSCULTATION: clear to auscultation bilaterally Cardio: COMMON NORMALS: no JVD, regular rate, regular rhythm, S1 normal heart sound present and S2 normal heart sound present RATE: regular rate RHYTHM: regular rhythm HEART SOUNDS: S1 normal heart sound present and S2 normal heart sound present GI: COMMON NORMALS: Normal to inspection, nondistended, normoactive bowel sounds present, Soft to palpation and non-tender PALPATION: Yes Soft to palpation Extremity: RIGHT LOWER EXTREMITY: Yes lower leg Right lower leg: Yes special tests Right lower leg special tests: Juancarlos's sign: Negative LEFT LOWER EXTREMITY: Yes knee joint and Yes lower leg Left lower leg: Yes special tests Left lower leg special tests: Juancarlos's sign: Negative OTHER: Knee incision is intact rafal are in place. There is no active drainage. There is no redness no purulent drainage. Dressing is changed at the bedside Urinary Catheter Management^: Davis: Cath Placed During This Visit: yes, but has since been removed by the nurse Reason for Continuing Indwelling Catheter: Decision to DC Catheter Urinary Catheter Date of Insertion: 09/04/19 Urinary Catheter Time of Insertion: 09:20 Date Urinary Catheter Removed: 09/05/19 Time Urinary Catheter Discontinued: 14:05 Data : 09/06/19 03:10 09/06/19 03:10 Micro: Microbiology 09/04/19 06:40 Urine Culture - Preliminary Urine,Clean Catch Gram positive cocci A&P Assessment and plan (1) History of knee replacement procedure of left knee: Continue VTE prophylaxis Start extended oral prophylaxis for total knee arthroplasty and also potentially empiric treatment of low-grade urinary tract infection noted from urine specimen at insertion of Davis catheter sensitivities pending Continue physical therapy Discharge planning Home with home health Discharge when patient is able to tolerate oral medications only for pain Status: Acute Attestations Medical Necessity Statement*: Patient requires continued inpatient level care for pain control prior to being considered for discharge home with home health Time Spent in Patient Care: 16 - 35 minutes (>than 50% of time spent in counselling and/or direct pt care on unit) . Coding Level of Care Code Acute Container Washer for Ubaldo Barron Diagnoses History of knee replacement procedure of left knee Z96.652
[2019-09-06] MEDS: TRAMadol 50 mg Tablet PO ×2 (11:30→17:30)
[2019-09-06] MEDS: acetaminophen 500 mg Tablet 1000 MG PO ×2 (13:11→19:48)
[2019-09-07] VITALS: BP 139/70; PULSE 88; RESP 18; TEMP 36.9; O2SAT 94
[2019-09-07] MEDS: ceFAZolin 1,000 MG in sodium chloride 0.9% (plus) 50 ML 100 MG IV ×2 (00:40→08:10)
[2019-09-07 02:21] VITALS: RESP 16
[2019-09-07] MEDS: oxyCODONE 5 mg IR Tab/Cap PO ×2 (02:21→08:00)
[2019-09-07 02:54] LABS: Basophils # 0.1 10^3/uL (0.0-0.1); Basophils % 0.4 %; Eosinophils # 0.2 10^3/uL (0.0-0.8); Eosinophils % 1.4 %; Hematocrit 28.1 % (37.0-47.0); Hemoglobin 9.5 g/dL (11.5-15.3); Lymphocytes # 2.6 10^3/uL (0.8-4.8); Mean Corpuscular HGB Conc 33.8 g/dL (30.0-36.0); Mean Corpuscular Volume 94.6 fL (81-99); Mean Platelet Volume 9.9 fL (7.4-10.4); Monocytes # 1.4 10^3/uL (0.2-0.9); Monocytes % 12.7 %; Neutrophils % 62.2 %; Nucleated Red Blood Cells % 0 %; Platelet Count 257 10^3/cmm (130-400); Red Blood Count 2.97 10^6/uL (4.1-5.3); Red Cell Distribution Width 12.4 % (12.1-15.1); White Blood Count 11.3 10^3/uL (4.0-10.0)
[2019-09-07 04:00] VITALS: BP 156/78; PULSE 83; RESP 20; TEMP 36.7; O2SAT 95
[2019-09-07] MEDS: TRAMadol 50 mg Tablet PO ×2 (05:04→12:05)
[2019-09-07] MEDS: acetaminophen 500 mg Tablet 1000 MG PO ×2 (05:04→12:05)
--- NOTE | 2019-09-07 06:33 | PC.NURSE ---
Shift Summary Pt slept well tonight and and good urinary output. Pt c/o pain but was controlled with oral pain meds. pt stated pain was at a 2 while resting but when up and moving was when her pain would raise to a 10. pt did well walking to the bathroom with standby assist and front wheeled walker.
[2019-09-07] MEDS: apixaban 5 mg Tablet 2.5 MG PO (07:59)
[2019-09-07] MEDS: pantoprazole DR 40 mg Tablet PO (07:59)
[2019-09-07] MEDS: cholecalciferol (vitamin D3) 1,000 unit Tablet 1000 UNIT PO (07:59)
[2019-09-07] MEDS: multivitamin therapeutic Tablet 1 TAB PO (07:59)
[2019-09-07] MEDS: calcium carbonate 500 mg Chew Tablet 1000 MG PO (07:59)
[2019-09-07 08:00] VITALS: BP 163/74; PULSE 95; RESP 16; RESP 17; TEMP 37.2; O2SAT 97
[2019-09-07] MEDS: iron polysaccharide complex 150 mg Capsule PO (08:00)
[2019-09-07] MEDS: cefUROXime 250 mg Tablet 500 MG PO (08:00)
[2019-09-07] MEDS: sennosides-docusate Tablet 2 TAB PO (08:00)
[2019-09-07] MEDS: valACYclovir 1,000 mg Tablet 500 MG PO (08:00)
[2019-09-07] MEDS: chlorhexidine gluconate 0.12% Btl 473 mL 30 ML MUCOUS MEM ×2 (08:07→12:05)
[2019-09-07 10:39] VITALS: BP 163/74; PULSE 95; RESP 17; TEMP 37.2; O2SAT 97
[2019-09-07 12:00] VITALS: BP 115/66; PULSE 98; RESP 18; TEMP 37.2; O2SAT 96
--- NOTE | 2019-09-13 12:26 | P.DS_ITS ---
Discharge Providers Date of Admission: 09/04/19 11:22 Date of Discharge: September 07, 2019 Attending Provider at Admission: Jim Braden DO Attending Provider at Discharge: Jim Braden DO Primary Care Provider: Teto Llamas MD Diagnoses at Discharge Discharge Diagnosis (1) History of knee replacement procedure of left knee: Status: Acute Reason for Visit Reason for Visit: Primary osteoarthritis of left knee Hospital Course Hospital Course: 79-year-old white female with chronic complaints of left knee pain. She's received extensive conservative treatment to include oral analgesics, intra-articular steroid injections and earlier this year underwent arthroscopic surgery with resection of meniscal tears. She had significant lateral and patellofemoral arthritic change lesser so in the medial compartment had arthroscopy. She's had persistent complaints of pain after her arthroscopic surgery. She feels that she has no recourse but to proceed with total knee arthroplasty. Did not want to consider chronic Pain management versus surgical intervention. Pain control the postoperative period has been a significant issue for this patient is a have treated her for nonrepairable right rotator cuff and her most recent left knee arthroscopy. The patient underwent left total knee arthroplasty with a preoperative single shot adductor canal block and a spinal anesthetic. In the recovery room she is very comfortable due to the block and a spinal anesthetic being in place. Postoperative x-ray show satisfactory placement of total knee components without evidence of intraoperative complication. The patient received vancomycin and Ancef during his hospital course for prophylaxis. She was started on and discharged on extended oral prophylaxis using cefuroxime 500 mg by mouth twice a day for 7 days. She was started on Eliquis postoperatively 2.5 mg by mouth twice a day for 14 days for VTE prophylaxis. On the first postoperative day the patient's Davis catheter was removed. She participated in physical therapy but she had difficulty due to postoperative pain. She required both parenteral narcotic as well as oral narcotic analgesics. For this reason she was not able to be discharged. In fact he would not be until postoperative day 3 that the patient was felt to be able to be discharged to home with home health. Her incision was intact with no evidence of infection. She had no calf tenderness bilaterally. She was able to participate with physical therapy. Discharge planners made arrangements for appropriate DME and arrangements for home health were made. The patient was able to ambulate with using a walker weightbearing as tolerated postoperative left lower extremity. Discharge Summary: see discharge planning and coordination patient discharged on oxycodone 5/325 one by mouth every 4 lynda as well as cefuroxime and Eliquis. Home health for home nursing, home health aide and physical therapy. Follow-up in the office in 2 weeks time for staple removal. Physical Exam Narrative: EXAM NARRATIVE: 79-year-old white female in no acute distress. She is alert and cooperative. She is thin in appearance. Mucous membranes are moist. Neck is supple without jugular venous distention Lungs are clear to auscultation without crackles or wheezing. Heart is regular rate and rhythm. Abdomen is soft and nontender Her left knee incision from her joint replacement is intact with rafal and skin glue in place. Her dressing was changed and new [place] dressing was applied. The patient had mild swelling of the left lower extremity but no calf tenderness bilaterally. Urinary Catheter Management^: Davis: Cath Placed During This Visit: yes, but has since been removed by the nurse Reason for Continuing Indwelling Catheter: Decision to DC Catheter Urinary Catheter Date of Insertion: 09/04/19 Urinary Catheter Time of Insertion: 09: Date Urinary Catheter Removed: 09/05/19 Time Urinary Catheter Discontinued: 14:05 Discharge Data Data Completed and Pending: Completed Studies During Hospitalization Category Date Time Status XR knee LT 1-2V 7 [id number] Urgent Exams 09/04/19 11:35 Completed Pathology: Surgic al [PTH] Routine Pth 09/04/19 11:18 Completed Vitals: Last Vital Signs Temp 99.0 F 09/07/19 12:00 Pulse 98 09/07/19 12:00 Resp 18 09/07/19 12:00 BP 115/66 09/07/19 12:00 Pulse Ox 96 09/07/19 12:00 Discharge Plan Discharge Patient Disposition: Home Health Service Condition: Stable Prescriptions: New oxycodone-acetaminophen 5-325 mg tablet 1 tab PO Q4H PRN (Reason: pain) Qty: 40 RF: 0 cefuroxime axetil 500 mg tablet 500 mg PO BID 7 Days Qty: 14 RF: 0 Eliquis 2.5 mg tablet 2.5 mg PO BID Qty: 28 RF: 0 Continued valacyclovir [Valtrex] 500 mg tablet 500 mg PO BID RF: 0 sumatriptan succinate 100 mg tablet 100 mg PO PRN RF: 0 pantoprazole [Protonix] 40 mg tablet,delayed release (DR/EC) 40 mg PO QDAY MDD 1 Qty: 90 RF: 3 celecoxib [Celebrex] 200 mg Capsule 200 mg PO BID RF: 0 Premarin 0.625 mg/gram cream 0.625 mg VAGINAL RF: 0 Orient 7.5-325 mg Tablet 1 tab PO BEDTIME PRN (Reason: Pain) RF: 0 No Action oxycodone-acetaminophen [Percocet] 7.5-325 mg tablet 1 tab PO Q4H PRN (Reason: pain) 7 Days Qty: 40 RF: 0 Discharge Orders: Discharge Order (Routine); Ordered 09/07/19 Ordered By: Jim Braden Other Ambulatory Orders: DME: Miscellaneous (Order) Location: None Selected Ordered By: Jim Braden DME: Walker (Order) Location: None Selected Ordered By: Jim Braden [place]: [facility] [place] [facility] [place]) [Outside] ([facility] has been called on discharge.) Jim Braden, [Physician] - 09/19/19 10:00 am (You have an appointment with Dr. Braden on September 18 at 10:00am.) Discharge Diet: Usual diet Discharge Activity: Increase activity as tolerated Patient Instructions: Cefuroxime (By mouth), Oxycodone/Acetaminophen (By mouth), Apixaban (By mouth), Total Knee Replacement (DC) Activity Restrictions/Additional Instructions: weightbearing as tolerated left knee Keep incision clean and dry other than for dressing changes until rafal are removed Perform frequent ankle pumps, isometric contractions of calf and thigh muscles as well as gluteal squeezes to maintain strength and decrease risk of blood clots. May use walker for ambulation may progress to cane when he feel safe to do so. Work on terminal extension by propping her heal up on a padded surface and extending her knee. Physical therapy will be working with you on gait and transfer training near ranges of motion. May use ice to decrease pain and swelling of left knee. May climb stairs as you feel safe to do so Discharge Date/Time: 09/07/19 14:18 Discharge Attestations Time Spent in Discharge Care*: less than 30 min Specific Discharge Activities: Specific discharge activities: educating patient, discussing with rehabilitation caseworker/social workers/dc planners and documenting/other paperwork Quality Metrics Clinical Quality Measures During this hospital stay, did patient experience: None Coding Level of Care Code Acute System Integration Engineer for Ubaldo Fwleandro Diagnoses History of knee replacement procedure of left knee Z96.652
== END 2019-09-07 14:18 | disposition home health service (06) | DRG 470 ==
LOC: MEDSURG 09-05 09:04
PROVIDERS: Admitting Provider Orthopaedic Surgery; PCP Internal Medicine; Visit Provider Orthopaedic Surgery
PROC: 0SRD0J9 Replacement of Left Knee Joint with Synthetic Substitute, Cemented, Open Approach (ICD-10-PCS; CPT 27447; principal; 2019-09-04 08:05)
DX: M17.12 Unilateral primary osteoarthritis, left knee (principal); N39.0 Urinary tract infection, site not specified; E23.2 Diabetes insipidus; K21.9 Gastro-esophageal reflux disease without esophagitis; D64.9 Anemia, unspecified
CPT/HCPCS: 12345; 36415; 51702; 73560; 73562; 80048; 81001; 85025; 86850; 86900; 87077; 87086; 87186; 88304; 93005; 97110; 97116; 97161; 97165; 97530; 97535; C1776; C9290; J0131; J0690; J1100; J1170; J1580; J2250; J2274; J2405; J2704; J2795; J3010; J3370; J3490; J7030; J7050

== ENCOUNTER → 2019-10-04 09:25 | Outpatient (BNVA) | payer OTHER, SELFPAY | PROVIDERS: PCP Internal Medicine; Visit Provider Orthopaedic Surgery | DX: Z96.652 Presence of left artificial knee joint (principal) | CPT/HCPCS: 73560; 73565 ==

== ENCOUNTER 2019-10-10 15:19 | Outpatient (RCR) | payer OTHER, SELFPAY | END 2019-10-26 23:59 | disposition home or self-care (01) | LOC: SPT 15:19 | PROVIDERS: PCP Internal Medicine; Referring Provider Orthopaedic Surgery; Visit Provider Orthopaedic Surgery | DX: Z47.1 Aftercare following joint replacement surgery (principal); Z96.652 Presence of left artificial knee joint | CPT/HCPCS: 97110; 97161 ==

== ENCOUNTER → 2019-10-15 10:40 | Outpatient (BNVA) | payer OTHER, SELFPAY | PROVIDERS: PCP Internal Medicine; Visit Provider Anesthesiology Pain Medicine | DX: G89.18 Other acute postprocedural pain (principal); M54.16 Radiculopathy, lumbar region; M47.816 Spondylosis without myelopathy or radiculopathy, lumbar region; M25.562 Pain in left knee; Z79.891 Long term (current) use of opiate analgesic | CPT/HCPCS: 99203; 99204 ==